=== PATIENT | female | born 1975 | race Caucasian/White ===

== ENCOUNTER 2018-05-21 05:56 | Day surgery (SDC) | payer OTHER ==
[2018-05-14 12:44] VITALS: BMI 28.7
--- NOTE | 2018-05-20 13:04 | HP ---
HISTORY OF PRESENT ILLNESS: Ms. De La Vega is a very pleasant 42-year-old woman, presenting for evaluation of left-sided L4 and L5 pains with new MRI scan that reveals severe bilateral foraminal stenosis at L4 and L5. She has been treating this non-surgically with injections and medications, and now hopes to move forward with surgery if possible. PAST MEDICAL HISTORY: Significant for chronic pain disorder, depression, anxiety. PAST MEDICAL HISTORY: Cholecystectomy, section, appendectomy, hysterectomy, unspecified back surgery. CURRENT MEDICATIONS: Flexeril and gabapentin. ALLERGIES: NO KNOWN DRUG ALLERGIES. PHYSICAL EXAMINATION: GENERAL: The patient is alert and oriented x3. MUSCULOSKELETAL: Gait is antalgic and slowed. Lower extremity motor exam is normal. ASSESSMENT: Lumbar radiculopathy. PLAN: Dr. Greenfield met with the patient, reviewed imaging, advocated for left L4 and left L5 facetectomy and foraminotomy. He explained the patient's risks, benefits, and alternatives of the procedure. The patient expressed understanding and elected to move forward with surgery as discussed. I do believe the patient mentally competent and capable of making medical decisions for herself. We will move forward with surgery as planned. Job ID: [id number]
[2018-05-21] MEDS ORDERED: Bupivacaine HCl 0.5%/Epinephrine 1:200,000/PF 30 ml Vial ONE (06:24)
[2018-05-21] MEDS ORDERED: Thrombin 5000 UNITS/5 ML VIAL ONE (06:24)
[2018-05-21] MEDS ORDERED: CEFAZOLIN 2 GM/50 ML BAG ONE ×2 (07:27→10:34)
[2018-05-21] MEDS ORDERED: Fentanyl 100 MCG/2 ML VIAL ONE ×3 (07:28→09:28)
[2018-05-21] MEDS ORDERED: HYDROcodone/Acetaminophen 5/325 mg Tablet ONE (10:34)
[2018-05-21] MEDS ORDERED: Lidocaine 1% PF 5 ML VIAL ONE (12:03)
[2018-05-21] MEDS ORDERED: Glycopyrrolate 0.2 MG/ML 5 ML SYRINGE ONE (12:03)
[2018-05-21] MEDS ORDERED: Ketorolac Tromethamine 30 MG/ML VIAL ONE (12:03)
[2018-05-21] MEDS ORDERED: PROPOFOL 200 MG/20 ML VIAL ONE (12:03)
[2018-05-21] MEDS ORDERED: Rocuronium Bromide 10 MG/ML (10ML VIAL) ONE (12:03)
[2018-05-21] MEDS ORDERED: Dexamethasone 20 MG/5 ML VIAL ONE (12:03)
[2018-05-21] MEDS ORDERED: Ondansetron PF 4 MG/2 ML Vial ONE (12:03)
--- NOTE | 2018-05-21 14:24 | OP ---
DATE OF PROCEDURE: 05/21/2018 BEE RANCHER: Armando Clayton PA-C. INDICATION: Pain. DIAGNOSIS: Lumbar radiculopathy. PROCEDURES PERFORMED: Reoperation left L4 and separately left L5 hemilaminectomy, medial facetectomy, decompression. ANESTHESIA: General. DESCRIPTION OF PROCEDURE: The patient was brought into the operating room and placed under general anesthesia. She was flipped from the supine to prone position on the operating room table. A linear incision was planned, which encompassed the entirety of the previous incision. After prepping and draping and after an appropriate operative pause, the incision was created. The soft tissues were swept left of midline. The scar tissue as well as evidence of prior bone removal were identified. With a high-speed cutting drill bit, curettes, and Kerrisons, we extended the bone work laterally to encompass the medial half of the facet joints at L4 and L5 in order to decompress the exiting L4 and L5 nerve roots. There was substantial degree of scar within the lateral recesses at L4-L5. We removed a bone spicule emanating from the superior articulating facets of L5 and S1 which were in the foramen. After decompressing these nerve roots, the wound was irrigated. Hemostasis was maintained throughout. The wound was then closed in anatomic layers and a pressure dressing was applied. There were no known procedural complications. Job ID: [id number]
== END 2018-05-21 11:45 | disposition home or self-care (01) ==
LOC: SDC 05:56
PROVIDERS: ATTEND Neurological Surgery
PROC: 01NB0ZZ Release Lumbar Nerve, Open Approach (ICD-10-PCS; principal; 2018-05-21)
DX: M48.061 Spinal stenosis, lumbar region without neurogenic claudication (principal); M54.16 Radiculopathy, lumbar region; F32.9 Major depressive disorder, single episode, unspecified; F41.9 Anxiety disorder, unspecified; F17.210 Nicotine dependence, cigarettes, uncomplicated; Z79.899 Other long term (current) drug therapy
CPT/HCPCS: 76000; J0670; J1100; J1885; J2001; J2405; J2704; J3010

== ENCOUNTER 2018-10-25 07:51 | Emergency (ER) | payer OTHER, SELFPAY ==
[2018-10-25] MEDS ORDERED: Ketorolac Tromethamine 60 MG/2 ML VIAL ONE (08:28)
== END 2018-10-25 08:45 | disposition home or self-care (01) ==
LOC: ERS 07:51
DX: S39.012A Strain of muscle, fascia and tendon of lower back, initial encounter (principal); Z71.6 Tobacco abuse counseling; F41.9 Anxiety disorder, unspecified; F17.200 Nicotine dependence, unspecified, uncomplicated; W19.XXXA Unspecified fall, initial encounter
CPT/HCPCS: 96372; 99406; J1885